=== PATIENT | male | born 1980 | race Caucasian/White ===

== ENCOUNTER 2019-10-23 15:26 | Emergency (ER) | payer BC ==
[2019-10-23 15:45] VITALS: TEMP 97.9; BMI 38.5
--- NOTE | 2019-10-23 15:59 | PDOC ---
History of Present Illness - General Chief Complaint: Blood Pressure Problem Stated Complaint: Abnormal Lab Results (Outside) Time Seen by Provider: 10/23/19 15:54 Past History - Past Medical History Allergies/Adverse Reactions: Allergies Allergy/AdvReac Type Severity Reaction Status Date / Time No Known Allergies Allergy Verified 10/23/19 15:46 Home Medications: Ambulatory Orders Aspirin [ASA -] 81 mg PO DAILY 10/23/19 Metformin HCl [Glucophage] 1,000 mg PO BID 10/23/19 Naproxen 500 mg PO QID PRN 10/23/19 [place]-3/Dha/Epa/Fish Oil [[place] 3 500 Softgel] 1 each PO DAILY 10/23/19 COPD: No Diabetes: Yes - Psycho Social/Smoking Cessation Hx Smoking History: Never smoked Hx Alcohol Use: No Drug/Substance Use Hx: No *Physical Exam - Vital Signs Last Vital Signs Temp Pulse Resp BP Pulse Ox 97.9 F 71 19 128/89 98 10/23/19 15:26 10/23/19 15:26 10/23/19 15:26 10/23/19 15:26 10/23/19 15:26 ED Treatment Course - LABORATORY CBC & Chemistry Diagram: 10/23/19 17:10 10/23/19 17:10 Discharge - Discharge Information Problems reviewed: Yes Clinical Impression/Diagnosis: High blood pressure Qualifiers: Hypertension type: unspecified Qualified Code(s): I10 - Essential (primary) hypertension Condition: Stable Disposition: HOME - Admission No - Follow up/Referral - Patient Discharge Instructions Patient Printed Discharge Instructions: DI for High Blood Pressure Additional Instructions: You were seen in the ER for high blood pressure. Your bloodwork was negative. Your EKG showed a partial right bundle block. Please return to the ER if you develop chest pain, shortness of breath, weakness, vision changes or high fevers. - Post Discharge Activity
[2019-10-23 17:31] LABS: BASO % 0.9 % (0-2.0); EOS % 0.9 % (0-4.5); HEMATOCRIT 45.2 % (35.4-49); HEMOGLOBIN 15.2 GM/dL (11.7-16.9); LYMPH % 19.7 % (8-40); MCH 29.4 pg (25.7-33.7); MCHC 33.6 g/dl (32.0-35.9); MEAN CELL VOLUME 87.7 fl (80-96); MEAN PLT VOLUME 10.3 fl (7.5-11.1); MONO % 5.6 % (3.8-10.2); NEUT % 72.9 % (42.8-82.8); PLATELET COUNT 221 K/MM3 (134-434); RBC 5.15 M/mm3 (4.00-5.60); RDW 13.7 % (11.9-15.9); WHITE BLOOD COUNT 9.6 K/mm3 (4.0-10.0)
[2019-10-23 18:04] LABS: ALBUMIN 4.2 g/dl (3.4-5.0); BILIRUBIN,TOTAL 0.3 mg/dL (0.2-1); BLOOD UREA NITROGEN 14.7 mg/dL (7-18); CALCIUM 9.2 mg/dL (8.5-10.1); CREATININE 0.8 mg/dL (0.55-1.3); TOT PROT 7.8 g/dl (6.4-8.2)
--- NOTE | 2019-10-23 18:32 | PDOC ---
Attending Attestation - Resident Resident Name: Srinivas Swanson - ED Attending Attestation I have performed the following: I have examined & evaluated the patient, The case was reviewed & discussed with the resident, I agree w/resident's findings & plan, Exceptions are as noted - HPI HPI: 10/23/19 18:10 Mr. Alexis is a 39 yo M who presents to the ER from the Urgent Care due to palpitations Pt has a history of recent excessive use of Hydroxycut gummy bears. Patient states he has been eating them as though they were candy. Noted palpitations, chest pain, shortness of breath. No fevers or chills. Currently no chest pain. No lower extremity edema, no recent travel. No prior experience with this medication. - Physicial Exam PE: 10/23/19 18:10 GENERAL: The patient is in no acute distress. ENT: Ears normal, nares patent, oropharynx clear without exudates. Moist mucous membranes. NECK: Normal range of motion, supple LUNGS: Breath sounds equal, clear to auscultation bilaterally. No wheezes, and no crackles. HEART: Tachycardia, regular rhythm, no murmur ABDOMEN: Soft, nontender, normoactive bowel sounds. EXTREMITIES: Normal range of motion, no edema. NEUROLOGICAL: Cranial nerves II through XII grossly intact. Normal speech. No focal neurological deficits. SKIN: Warm, Dry, normal turgor, no rashes or lesions noted. 10/23/19 18:13 - Medical Decision Making 10/23/19 18:13 39-year-old male presenting to the emergency department with a complaint of palpitations in the setting of taking hydroxy cut Pt currently feels well Does not want to come into the hospital Labs: 10/23/19 18:32 Laboratory Tests 10/23/19 10/23/19 10/23/19 17:10 17:10 17:10 WBC 9.6 Hgb 15.2 Hct 45.2 Plt Count 221 BUN 14.7 Creatinine 0.8 Creatine Kinase 75 Troponin I < 0.02 PT EKG: ST rate of 105 bpm, axis nml, intervals nml - pr:105ms, QRS:110ms, QTc: 486ms, no st elevation or depression, t waves upright Pt unwilling to stay in the hospital for any additional studies (as his just had a transplant) Pt is leaving AMA
[2019-10-23 19:06] VITALS: BP 140/95; PULSE 108
--- NOTE | 2019-10-24 14:05 | EKG ---
Test Reason : Blood Pressure : / mmHG Vent. Rate : 105 BPM Atrial Rate : 105 BPM P-R Int : 138 ms QRS Dur : 110 ms QT Int : 368 ms P-R-T Axes : 057 -28 037 degrees QTc Int : 486 ms SINUS TACHYCARDIA INCOMPLETE RIGHT BUNDLE BRANCH BLOCK VOLTAGE CRITERIA FOR LEFT VENTRICULAR HYPERTROPHY ABNORMAL ECG NO PREVIOUS ECGS AVAILABLE Confirmed by DELMAR JACKSON MD ([id number]) on 10/24/2019 2:05:29 PM Referred By: Confirmed By:DELMAR JACKSON MD
== END 2019-10-23 19:06 | disposition home or self-care (01) ==
LOC: JER 15:26
DX: I10 Essential (primary) hypertension (principal); R00.2 Palpitations; T50.5X5A Adverse effect of appetite depressants, initial encounter; Y92.89 Other specified places as the place of occurrence of the external cause
CPT/HCPCS: 36415; 80053; 82550; 84484; 85025; 93005; 93010; 99282-25